=== PATIENT | male | born 1990 | race Caucasian/White ===

== ENCOUNTER 2016-12-07 10:48 | Emergency (ER) | payer OTHER ==
[2016-12-07 11:27] VITALS: BP 118/62
--- NOTE | 2016-12-07 11:27 | UC ---
Laceration HPI - HPI Summary HPI Summary: complaint of laceration over his left eye that occured last night approx 10;30 while playing soccer feel and hit his head on the ground denies LOC denies headache, dizziness, denies eye pain, vision changes hasn't taken any medications for pain - History Of Current Complaint Chief Complaint: UCLaceration Stated Complaint: LACERATION OVER LEFT EYE Time Seen by Provider: 12/07/16 11:12 Hx Obtained From: Patient Laceration Location: Face - Allergies/Home Medications Allergies/Adverse Reactions: Allergies Allergy/AdvReac Type Severity Reaction Status Date / Time No Known Allergies Allergy Verified 12/07/16 10:56 Home Medications: Home Medications NK [No Home Medications Reported] 12/07/16 [History Confirmed 12/07/16] PMH/Surg Hx/FS Hx/Imm Hx Previously Healthy: Yes Endocrine History Of: Denies: Diabetes, Thyroid Disease Cardiovascular History Of: Denies: Cardiac Disorders, Hypertension Respiratory History Of: Denies: COPD, Asthma GI/ History Of: Denies: Ulcer Neurological History Of: Denies: TIA Psychological History Of: Denies: Anxiety, Bipolar Disorder Cancer History Of: Denies: Lung Cancer Other History Of: Negative For: HIV - Surgical History Surgical History: Yes Surgery Procedure, Year, and Place: left and right hand - Family History Known Family History: Negative: Cardiac Disease, Hypertension, Diabetes - Social History Occupation: Student Alcohol Use: Occasionally Substance Use Type: None Smoking Status (MU): Never Smoked Tobacco - Immunization History Most Recent Tetanus Shot: 08/2016 Vaccination Up to Date: Yes Review of Systems Constitutional: Negative Skin: Other - laceration onver left eye Eyes: Negative ENT: Negative Respiratory: Negative Cardiovascular: Negative Gastrointestinal: Negative Genitourinary: Negative Motor: Negative Neurovascular: Negative Musculoskeletal: Negative Neurological: Negative Psychological: Negative All Other Systems Reviewed And Are Negative: Yes Physical Exam Triage Information Reviewed: Yes Appearance: No Pain Distress, Well-Nourished Vital Signs: Initial Vital Signs Temp 97.5 F 12/07/16 10:55 Pulse 68 12/07/16 10:55 Resp 16 12/07/16 10:55 BP 118/62 12/07/16 10:55 Pulse Ox 100 12/07/16 10:55 Vital Signs Reviewed: Yes Eyes: Positive: Conjunctiva Clear ENT: Positive: Pharynx normal, TMs normal Neck: Positive: No Lymphadenopathy Respiratory: Positive: Lungs clear, Normal breath sounds, No respiratory distress Cardiovascular: Positive: RRR, No Murmur, Pulses Normal Abdominal Exam: Normal Musculoskeletal Exam: Normal Neurological: Positive: Alert Psychological Exam: Normal Skin: Positive: Other - left forehead/eyebrow 1.5cm leceration through brow Laceration Repair - Laceration Repair 1 Description: Linear : No Repair Necessary Laceration Size After Repair: Length (cm) - 3.5, Width (mm) - 4mm, Depth (mm) - 2mm Modified For Repair: No Type Injection: Local Anesthesia Used: 2.0% Lido Cleansing Completed Via Routine Prep: Yes Irrigation With Pressure Irrigation Device: No Closure Material: Sutures Closure Method: Single Layer Suture Of: Skin Suture Type: Prolene - 9 sutures Laceration Course/Dx - Differential Dx - Laceration/Wound Differental Diagnoses: Laceration Provider Diagnoses: simple laceration left side of face over and through eyebrow Discharge - Discharge Plan Condition: Stable Disposition: HOME Patient Education Materials: Laceration (ED), Care For Your Stitches (ED) Referrals: Non Staff,Doctor [Primary Care Provider] - [facility] [place] [facility] [Outside] Additional Instructions: LACERATION What is a Laceration? Laceration is the medical name for a cut. Lacerations may be large or small. Some lacerations need stitches (also called sutures) to close them so they will heal well. Stitches usually need to be placed within 6 hours of injury. There are times when a wound may be determined to be too old for stitches. Stitches are removed when the wound is strong enough to stay closed, which is usually in 3 to 15 days, depending on where the wound or cut is located. Some stitches dissolve by themselves and do not need to be removed. If you have been given a numbing medicine, there will be some pain when it wears off. The pain from the wound should begin to decrease within one day. Treatment Recommendations: Keep the wound clean and dry for at least the next two (2) days. Keep the dressing clean if at all possible. If you must work in surroundings that will dirty the wound or dressing, wear a protective covering such as a glove. If the wound does get dirty, clean it as soon as you can with mild soap and water using a patting action. Do not rub or scrub vigorously. Then pat it dry completely. If a dressing was placed on the wound, you should put a clean one on at least daily and whenever you clean the wound. You can apply antibiotic ointment such as Bacitracin ointment to the wound each time you change the dressing. Avoid using the injured part as much as possible. If the wound is near a joint , try not to bend the joint too much. Elevate the injured part above your heart whenever possible to relieve throbbing. If you had stitches put in, you should see your healthcare provider in 1 to 2 days to have the wound checked for any signs or symptoms of infection. Some stitches will dissolve by themselves. Others will need to be removed. Make an appointment with your healthcare provider to have the stitches removed on the date instructed. An antibiotic medicine may be prescribed. The medicine should be taken until it is completely gone, even if you are feeling better. If you stop taking the medicine early, the infection may not be completely gone, and the medicine may not work the next time. Call Your Doctor or Return Here IF: Your wound becomes red, warm, swollen or more painful. There are red streaks coming from the wound. You develop a fever or shaking chills. Pus or bad smelling fluid comes out of the wound. You have any other symptoms that worry you.
[2016-12-07] MEDS ORDERED: Lidocaine 2% PF * 5 ML VIAL ONE (11:32)
== END 2016-12-07 12:33 | disposition home or self-care (01) ==
LOC: UCCORT 10:48
DX: S01.112A Laceration without foreign body of left eyelid and periocular area, initial encounter (principal); W18.30XA Fall on same level, unspecified, initial encounter; Y93.66 Activity, soccer; Y92.39 Other specified sports and athletic area as the place of occurrence of the external cause
CPT/HCPCS: 12013; 99211; G0463

== ENCOUNTER 2016-12-13 12:17 | Emergency (ER) | payer OTHER ==
[2016-12-13 12:38] VITALS: BP 130/64
--- NOTE | 2016-12-13 13:01 | UC ---
HPI Wound/Suture Re-check - HPI Summary HPI Summary: FIVE DAYS AGO HAD SUTURES (#9) PLACED IN LEFT EYEBROW AFTER SPORTS TRAUMA. NO COMPLICATIONS WITH WOUND. - History Of Current Complaint Chief Complaint: UCSkin Stated Complaint: SUTURE REMOVAL Time Seen by Provider: 12/13/16 12:37 Hx Obtained From: Patient Onset/Duration: Sudden Onset, Lasting Days, Still Present Severity: Mild - Allergies/Home Medications Allergies/Adverse Reactions: Allergies Allergy/AdvReac Type Severity Reaction Status Date / Time No Known Allergies Allergy Verified 12/13/16 12:36 PMH/Surg Hx/FS Hx/Imm Hx Previously Healthy: Yes Endocrine History Of: Denies: Diabetes, Thyroid Disease Cardiovascular History Of: Denies: Cardiac Disorders, Hypertension Respiratory History Of: Denies: COPD, Asthma GI/ History Of: Denies: Ulcer Neurological History Of: Denies: TIA Psychological History Of: Denies: Anxiety, Bipolar Disorder Cancer History Of: Denies: Lung Cancer Other History Of: Negative For: HIV - Surgical History Surgical History: Yes Surgery Procedure, Year, and Place: left and right hand - Family History Known Family History: Negative: Cardiac Disease, Hypertension, Diabetes - Social History Occupation: Unemployed Lives: Alone Alcohol Use: Occasionally Substance Use Type: None Smoking Status (MU): Never Smoked Tobacco - Immunization History Most Recent Tetanus Shot: 08/2016 Vaccination Up to Date: Yes Review of Systems Constitutional: Negative Skin: Other - #9 SUTURES LEFT EYEBROW Eyes: Negative ENT: Negative Respiratory: Negative Cardiovascular: Negative Gastrointestinal: Negative Genitourinary: Negative Motor: Negative Neurovascular: Negative Musculoskeletal: Negative Neurological: Negative Psychological: Negative All Other Systems Reviewed And Are Negative: Yes Physical Exam Triage Information Reviewed: Yes Appearance: Well-Appearing, No Pain Distress, Well-Nourished Vital Signs: Initial Vital Signs Temp 97.6 F 12/13/16 12:34 Pulse 53 12/13/16 12:34 Resp 14 12/13/16 12:34 BP 130/64 12/13/16 12:34 Pulse Ox 100 12/13/16 12:34 Vital Signs Reviewed: Yes Eye Exam: Normal ENT Exam: Normal ENT: Positive: Normal ENT inspection, Hearing grossly normal, Pharynx normal, TMs normal Dental Exam: Normal Neck exam: Normal Respiratory Exam: Normal Respiratory: Positive: Chest non-tender, Lungs clear, Normal breath sounds, No respiratory distress Cardiovascular Exam: Normal Cardiovascular: Positive: RRR, No Murmur, Pulses Normal Abdominal Exam: Normal Abdomen Description: Positive: Nontender, No Organomegaly Musculoskeletal Exam: Normal Musculoskeletal: Positive: Strength Intact, ROM Intact Neurological Exam: Normal Psychological Exam: Normal Skin Exam: Normal Course/Dx - Differential Dx - Laceration/Wound Differential Diagnoses: Suture Removal Provider Diagnoses: SUTURE REMOVAL LEFT EYEBROW Discharge - Discharge Plan Condition: Stable Disposition: HOME Patient Education Materials: Stitches Removal (ED) Referrals: Non Staff,Doctor [Primary Care Provider] -
== END 2016-12-13 12:58 | disposition home or self-care (01) ==
LOC: UCCORT 12:17
DX: Z48.02 Encounter for removal of sutures (principal)